=== PATIENT | female | born 1985 | race Caucasian/White ===

== ENCOUNTER 2021-12-13 16:55 | Emergency (ER) | payer BC, OTHER ==
[~2021-12-13] VITALS: Ht 157.5 cm; Wt 100.0 kg
[2021-12-13] MEDS ORDERED: BACITRACIN ZINC OINT UDPKT TOP ONE (19:15)
[2021-12-13] MEDS ORDERED: LIDOCAINE HCL/EPINEPHRINE 1%-EPI 1:100,000 20 ML VIAL INFIL ONE (19:15)
[2021-12-13] MEDS ORDERED: ACETAMINOPHEN 325MG TABLET PO ONE (19:15)
[2021-12-13] MEDS ORDERED: LIDOCAINE HCL/EPINEPHRINE 1%-EPI 1:100,000 10 ML VIAL IJ NR (20:25)
[2021-12-13] MEDS ORDERED: BACITRACIN ZINC OINT UDPKT TOP NR (20:25)
[2021-12-13] MEDS ORDERED: ACETAMINOPHEN 325MG TABLET PO NR (20:25)
[2021-12-13 21:00] VITALS: BP 117/72
[2021-12-13] MEDS ORDERED: SULFAMETHOXAZOLE/TRIMETHOPRIM 800/160MG TABLET PO ONE (21:00)
[2021-12-13] MEDS ORDERED: HYDROCODONE/ACETAMINOPHEN 5/325MG TABLET PO ONE (21:00)
[2021-12-13] MEDS ORDERED: CEFTRIAXONE SODIUM 1 G/VIAL IM ONE (21:00)
[2021-12-13] MEDS ORDERED: HYDR-4001 MT (21:12)
[2021-12-13] MEDS ORDERED: CEPH500T MT (21:12)
[2021-12-13] MEDS ORDERED: IBUP-2028 MT (21:12)
[2021-12-13] MEDS ORDERED: SULF1TAB48 MT (21:12)
== END 2021-12-13 22:08 | disposition home or self-care (01) ==
LOC: ER 16:55
DX: L02.415 Cutaneous abscess of right lower limb (principal); E11.9 Type 2 diabetes mellitus without complications
CPT/HCPCS: 10060; 82962; 96372; 99284; J0696; J3490

== ENCOUNTER 2021-12-15 12:33 | Emergency (ER) | payer BC, OTHER ==
[~2021-12-15] VITALS: Ht 165.1 cm; Wt 97.0 kg
[~2021-12-15 12:33] MED LIST: CEPH500T MT; HYDR-4001 MT; IBUP-2028 MT; SULF1TAB48 MT
[2021-12-15 13:46] VITALS: BP 117/70
== END 2021-12-15 21:27 | disposition home or self-care (01) ==
LOC: ER 12:33
DX: Z48.00 Encounter for change or removal of nonsurgical wound dressing (principal)
CPT/HCPCS: 99281